=== PATIENT | female | born 1980 | race Caucasian/White ===

== ENCOUNTER → 2023-10-30 16:35 | Outpatient (REF) | payer OTHER, SELFPAY | LOC: MRI 3T 16:35 | PROVIDERS: ATTENDING PHYSICIAN Surgery; FAMILY PHYSICIAN Family Medicine; REFERRING PHYSICIAN Obstetrics & Gynecology | DX: Z15.89 Genetic susceptibility to other disease (principal); R92.2 Inconclusive mammogram; Z80.3 Family history of malignant neoplasm of breast | CPT/HCPCS: 77049; A9585 ==

== ENCOUNTER → 2024-04-08 07:27 | Outpatient (REF) | payer OTHER, SELFPAY | LOC: HWWDC 07:27 | PROVIDERS: ATTENDING PHYSICIAN Obstetrics & Gynecology; FAMILY PHYSICIAN Family Medicine | DX: Z12.31 Encounter for screening mammogram for malignant neoplasm of breast (principal) | CPT/HCPCS: 77063; 77067 ==

== ENCOUNTER 2025-01-01 06:22 | Day surgery (SDC) | payer OTHER, SELFPAY | END 2025-01-01 11:20 | disposition home or self-care (01) | LOC: GI 06:22 | PROVIDERS: ATTENDING PHYSICIAN Internal Medicine Gastroenterology | DX: Z12.11 Encounter for screening for malignant neoplasm of colon (principal); K64.8 Other hemorrhoids; Z84.81 Family history of carrier of genetic disease | CPT/HCPCS: 43235; G0105 ==

== ENCOUNTER → 2025-01-13 16:01 | Outpatient (REF) | payer OTHER, SELFPAY | LOC: MRI 3T 16:01 | PROVIDERS: ATTENDING PHYSICIAN Surgery; FAMILY PHYSICIAN Family Medicine | DX: Z15.09 Genetic susceptibility to other malignant neoplasm (principal); Z15.89 Genetic susceptibility to other disease; Z80.3 Family history of malignant neoplasm of breast | CPT/HCPCS: 77049; A9585 ==